=== PATIENT | male | born 1970 | race Hispanic/Latino ===

== ENCOUNTER → 2019-12-08 | Outpatient (CLI) | payer OTHER ==
[~2019-12-08] MED LIST: CELEBREX100 MG PO; ESIDRIX25 MG PO; METOPROLOL SUCC25 MG PO; TYLENOL WITH C1 EACH PO
== END ==
LOC: RAD 05:00 → EDSTATUS 12-29 15:00
PROVIDERS: ATTEND Internal Medicine Gastroenterology
DX: Z01.818 Encounter for other preprocedural examination (principal); Z12.11 Encounter for screening for malignant neoplasm of colon; R13.10 Dysphagia, unspecified; R12 Heartburn
CPT/HCPCS: 93005